=== PATIENT | male | born 1965 | race Native Hawaiian/Other Pacific Islander ===

== ENCOUNTER 2017-05-24 08:50 | Day surgery (SDC) | payer BC | END 2017-05-24 11:30 | disposition home or self-care (01) | LOC: OR 08:50 | PROC: 0DB68ZZ Excision of Stomach, Via Natural or Artificial Opening Endoscopic (ICD-10-PCS; principal; 2017-05-24) | PROC: 0DB48ZZ Excision of Esophagogastric Junction, Via Natural or Artificial Opening Endoscopic (ICD-10-PCS; 2017-05-24) | PROC: 0DB98ZZ Excision of Duodenum, Via Natural or Artificial Opening Endoscopic (ICD-10-PCS; 2017-05-24) | DX: K29.70 Gastritis, unspecified, without bleeding (principal); K29.80 Duodenitis without bleeding; K44.9 Diaphragmatic hernia without obstruction or gangrene; K21.0 Gastro-esophageal reflux disease with esophagitis; K31.84 Gastroparesis; R13.10 Dysphagia, unspecified | CPT/HCPCS: J2001; J2250; J2704; J3010 ==

== ENCOUNTER 2022-03-31 08:11 | Outpatient (CLI) | payer OTHER | END 2022-03-31 18:52 | disposition home or self-care (01) | LOC: RESP 08:11 | PROVIDERS: ATTEND Internal Medicine Sleep Medicine | DX: R06.00 Dyspnea, unspecified (principal) ==